=== PATIENT | male | born 1955 | race Caucasian/White ===

== ENCOUNTER 2018-06-09 15:09 | Emergency (ER) | payer OTHER ==
[2018-06-09 15:17] VITALS: Ht 170.2 cm
[2018-06-09 16:43] VITALS: BP 113/70
== END 2018-06-09 16:43 | disposition home or self-care (01) ==
LOC: ED 15:09
DX: M54.5 Low back pain (principal); I10 Essential (primary) hypertension; E11.9 Type 2 diabetes mellitus without complications; M48.07 Spinal stenosis, lumbosacral region; Z90.49 Acquired absence of other specified parts of digestive tract
CPT/HCPCS: J2270